=== PATIENT | male | born 1995 | race Two or more races ===

== ENCOUNTER 2016-07-03 11:39 | Emergency (ER) | payer OTHER ==
[~2016-07-03 11:39] MED LIST: BACTRIM DS TABL1 TA1 PO; BACTROBAN22 GM TOP; IBUPROFEN800 MG PO; MOTRIN400 M1 PO; NO MEDICATIONS
== END 2016-07-03 11:55 | disposition home or self-care (01) ==
LOC: CFTX 11:39
DX: M70.812 Other soft tissue disorders related to use, overuse and pressure, left shoulder (principal); Z87.891 Personal history of nicotine dependence; X50.3XXA Overexertion from repetitive movements, initial encounter
CPT/HCPCS: 99283